=== PATIENT | female | born 1955 | race African-American/Black ===

== ENCOUNTER 2016-11-22 09:36 | Inpatient (IN) ==
[2016-11-22 10:11] LABS: Basophils % 0.4 % (0.0-0.8); Eosinophils # 0.2 10*3/uL (0.0-0.87); Eosinophils % 3.5 % (0.00-10.9); Hematocrit 32.3 VOL% (35.7-47.0); Hemoglobin 10.8 GM/DL (12.0-16.0); Immature Granulocytes % 0.2 %; Immature Granulocytes Absolute 0.01 #; Lymphocytes # 1.5 10*3/uL (1.4-4.0); Lymphocytes % 26.1 % (21.3-54.2); Mean Corpuscular HGB Conc 33.4 GM/DL (32-36); Mean Corpuscular Hemoglobin 33 PG (27-34); Mean Corpuscular Volume 97.3 FL (87-102); Mean Platelet Volume 9.9 FL (9.6-12.0); Monocytes # 0.6 10*3/uL (0.11-0.8); Monocytes % 10.6 % (1.7-12.7); Neutrophils # 3.4 10*3/uL (1.4-7.4); Neutrophils % 59.2 % (38.7-73.9); Platelet Count 226 T/CUMM (130-400); Red Blood Count 3.32 MC/CUMM (3.8-5.5); White Blood Count 5.7 T/CUMM (4-12)
--- NOTE | 2016-11-22 10:14 | Emergency Department Note ---
Deng Ladd Brittany, am scribing for, and in the presence of, Sarath De MD 10:03. Kenisha Ladd James D, MD, personally performed the services described in this documentation, ascribed by Mariah Vilchis in my presence, and it is both accurate and complete . Arrival - Arrival Chief Complaint: Shortness of Breath ED Nursing Triage Note: pt had rt knee surgery in [place] and was dcd home friday. pt was not sent to rehab. pt is unable to walk on leg and has been laying in bed since friday getting home. pt c/o sob. pt has not been able to get to dialysis since friday and only stayed half the time then. Mode of Arrival: Stretcher Limitations: No Limitations Source: Patient, RN Notes Reviewed - History of Present Illness HPI Narrative: Patient is a 61 y/o black female presenting to the ED via EMS with c/o SOB which began this morning. Patient was recently DC'd to home on Friday, November 18 s/p having R knee Arthrascopy performed with which she was found to have torn meniscus and ACL in [place] per Dr. Sandoval. She was told that she would have rehab and tx for this due to her age. Patient reports that she was not sent to a rehabilitation center and is currently being set up for rehabilitation at [facility]. She has been unable to ambulate on this leg and has been lying in bed since arrival home. Patient is on Dialysis secondary to Renal Failure and has not had dialysis all week. Patient lives at home alone and has told ER nurse that she is here for rehabilitation purposes. Dr. Wallace is her provider. PMHx of HTN, Anxiety, Depression, Migraine, Seizures, Thyroid Disorder, Rehumatoid Arthritis, Renal Failure, GERD, Hemorrhoids, Breast CA. Onset (ago): hour(s) Consistency: constant Allergies/Adverse Reactions: Allergies Allergy/AdvReac Type Severity Reaction Status Date / Time aspirin Allergy RASH Verified 09/27/16 12:16 [From Excedrin Migraine] caffeine Allergy RASH Verified 09/27/16 12:16 [From Excedrin Migraine] clindamycin [From Cleocin] Allergy ITCHING Verified 09/27/16 12:16 haloperidol [From Haldol] Allergy RASH Verified 09/27/16 12:16 Iodinated Contrast Media - Allergy RASH Verified 09/27/16 12:16 Oral and [Iodinated Contrast Media - IV Dye] morphine Allergy HIVES Verified 09/27/16 12:16 NSAIDS (Non-Steroidal Allergy HIVES Verified 09/27/16 12:16 Anti-Inflamma Sulfa (Sulfonamide Allergy DIFFICULTY Verified 09/27/16 12:16 Antibiotics) SWALLOWING Home Medications: Home Medications Medication Instructions Recorded Confirmed Type ALPRAZolam [Alprazolam] 0.25 mg PO BEDTIME 09/10/14 09/27/16 History Sevelamer Carbonate Tab [Renvela 1,600 mg PO WITH SNACKS PRN 09/10/14 09/27/16 History Tab] Sevelamer Carbonate Tab [Renvela 3,200 mg PO TID W/MEALS 09/10/14 09/27/16 History Tab] Topiramate [Topamax] 100 mg PO DAILY PRN 09/10/14 09/27/16 History Zolpidem Tartrate 10 mg PO BEDTIME PRN 09/10/14 09/27/16 History HYDROcodone/ACETAMIN 10-325 [[place] 1 tablet PO Q6H 10/17/15 09/27/16 History 10-325] Levothyroxine Tab [Synthroid Tab] 175 mcg PO QAM 10/17/15 09/27/16 History Cinacalcet [Sensipar] 30 mg PO DAILY W/LUNCH 03/13/16 09/27/16 History Esomeprazole Magnesium [Nexium] 40 mg PO QAM 03/13/16 09/27/16 History Mupirocin 2% Oint [Bactroban 2% 1 applic TOP TID #22 gm 09/27/16 Rx Oint] Review of System - Review of System 12 point system: reviewed and no additional remarkable complaints except as stated - Review of System Constitutional: Absent: chills, fever Eyes: Absent: vision change Respiratory: Present: respiratory distress Cardiovascular: Absent: chest pain Gastrointestinal: Absent: nausea, vomiting Medical,Surgical,& Family Hx - Medical History Cardio: History of: Hypertension Psychological: History of: Anxiety Disorders, Depression Neurology: History of: Migraine, Seizures (last occurence at age 10) Endocrine: History of: Thyroid Disorder Rheumatology: History of;: Rheumatoid Arthritis Renal: History of: Dialysis (M W F), Renal Failure Gastrointestinal: History of: GERD, Hemorrhoids Musculoskeletal: History of: Back/Neck Problems Reproductive: History of: Breast Cancer - Surgical History HEENT Surgeries: Surgical HX of: Thyroid Surgery Abdominal Surgeries: Surgical HX of: Cholecystectomy, Colonoscopy, EGD Reproductive Surgeries: Surgical HX of;: Breast Surgery (lumpectomy, tissue removal), Hysterectomy Orthopedic Surgeries: Surgical HX of;: Orthopedic Surgery (left knee arthroscopy ) - Family History Family History: Reports;: Family Cancer (mother (breast - 49)) Comment Only: Family Diabetes (mother), Family Hypertension (mother), Family Stroke (mother) - Social History Smoking Status: Never smoker Frequency of Alcohol Use: None Type of Drug Use: None Exam Physical Examination: GENERAL: This is a well-nourished, well-developed black female in no apparent distress. VITAL SIGNS: Reviewed. HEENT: Head is normocephalic and atraumatic. Pupils are equally round and reactive to light. Extraocular movement are intact. Oropharynx is benign with moist mucous membranes. NECK: Neck is soft and supple without tenderness. There are no masses. There is no lymphadenopathy. LUNGS: Lungs are clear to auscultation bilaterally. Chest rises symmetrically. There is no chest wall tenderness. CV: Heart is regular rate and rhythm without murmurs, rubs, or gallops. ABDOMEN: Abdomen is soft, non-tender to palpation. There are no abnormal masses palpated. There is no organomegaly. Bowel sounds are present and active. SKIN: Skin is warm and dry. No rash. EXTREMITIES: Patient is has swelling about the right knee. Wounds are healing well without any evidence of infection erythema or or induration. There is no purulent drainage. Patient does have 1-2+ pitting edema of the left lower extremity.. NEUROLOGIC: Awake, alert, and oriented x4. Cranial nerves II through XII are grossly intact. There are no motorsensory deficits. PSYCHIATRIC: Normal affect. Normal mood. Vital Signs: Vital Signs Temperature 97.5 F L 11/22/16 09:42 Pulse Rate 76 11/22/16 10:45 Respiratory Rate 16 11/22/16 10:45 Blood Pressure 131/86 11/22/16 10:45 O2 Sat by Pulse Oximetry 100 11/22/16 10:45 Results - Labs CBC & BMP: 11/22/16 10:03 11/22/16 10:03 Lab Results: I have reviewed the patients labs - Diagnostic Findings Procedure: Chest x-ray: image reviewed by me (No infiltrates, no pleural effusions.), X-ray: image reviewed by me (Right knee x-ray:) Disposition Clinical Impression: End-stage renal disease on hemodialysis, Right ACL tear, History of torn meniscus of right knee Case discussed with: patient Disposition: Still a Patient Condition: Stable
[2016-11-22 10:42] LABS: Calcium 7.7 MG/DL (8.5-10.1); Osmolality,Calculated 305.5 MOS/KG (273-304)
[2016-11-22 10:43] LABS: Potassium 5.7 MMOL/L (3.5-5.1)
--- NOTE | 2016-11-22 11:13 | XRay Report ---
XR chest 1V Indication: Dyspnea, end-stage renal disease Comparison: Chest x-ray March 13, 2016 Technique: Single frontal view of the chest. Findings: The cardiomediastinal silhouette is stable in configuration. Chronic change of the lungs without focal consolidation, pleural effusion, or pneumothorax. Visualized osseous and surrounding soft tissue structures appear grossly unchanged. IMPRESSION: Stable chest x-ray without acute cardiopulmonary process demonstrated. PROCEDURE INTERPRETED AT [facility] DEPARTMENT OF RADIOLOGY Final Report Signed by: Dr Fransico River
--- NOTE | 2016-11-22 11:13 | XRay Report ---
History: Right knee pain Date: 11/22/2016 Study: Right knee 2 views Comparison exam: September 27, 2016 There is no fracture, dislocation, or focal destructive osseous abnormality. There is osteopenia. There is mild to moderate osteophyte formation in all 3 joint compartments, more so medially. There is mild to moderate joint space narrowing in the medial knee compartment. There is a moderate-sized suprapatellar joint effusion. There is suspected osteopenia. Impression: Joint effusion. Osteoarthritis as before. Osteopenia PROCEDURE INTERPRETED AT [facility] DEPARTMENT OF RADIOLOGY Final Report Signed by: Dr. Marichuy Brand
[2016-11-22] MEDS ORDERED: ACETAMINOPHEN 325 MG TABLET PO PRN ×2 (11:26→12:15)
[2016-11-22] MEDS ORDERED: diphenhydrAMINE CAP 25 MG CAPSULE PO PRN (11:26)
[2016-11-22] MEDS ORDERED: ZALEPLON 5 MG CAPSULE PO PRN (11:26)
[2016-11-22] MEDS ORDERED: ONDANSETRON 4 MG/2 ML VIAL IV PRN (11:26)
[2016-11-22] MEDS ORDERED: GLUCAGON 1 MG VIAL IM PRN (11:26)
[2016-11-22] MEDS ORDERED: DEXTROSE 50% 25 GM/50 ML VIAL IV PRN (11:26)
[2016-11-22] MEDS ORDERED: guaiFENesin/DM ER 600-30 MG TABLET PO PRN (12:15)
[2016-11-22] MEDS ORDERED: MORPHINE 2 MG/1 ML SYRINGE IV PRN (12:15)
[2016-11-22] MEDS ORDERED: TOPIRAMATE 100 MG TABLET PO PRN (12:22)
[2016-11-22] MEDS ORDERED: SEVELAMER CARBONATE 800 MG TABLET PO PRN (12:22)
--- NOTE | 2016-11-22 12:29 | Hospitalist History & Physical ---
<Tashia Manning - Last Filed: 11/22/16 12:24> Assessment and Plan - Time spent with patient Time spent with patient: Greater than 30 minutes (1) Status post right knee scope Status: Acute Assessment and plan: 61-year-old -[place] female with history of end-stage renal disease on hemodialysis Friday, hypothyroidism, anxiety and depression, and migraines admitted by the hospitalist service status post right knee scope done in [place] on 11/18/16 with right knee pain, shortness of breath and chest pain. Patient has been immobile since surgery on Friday and has missed all but 2-1/2 hours of dialysis this week. Consult nephrology for dialysis today. Will get ultrasound of her right lower extremity to rule out DVT, consult physical therapy for evaluation and treatment. Patient will most likely need to go to swing bed or rehab following discharge. Since patient did complain of some chest pain and shortness of breath with radiation to the arm will go ahead and check stat troponins and EKG and trend these 3 to rule out HI. Her medicines have been reconciled. Dr. Olivas will see and examine patient and further recommendations to follow. Current Visit: Yes (2) Hypothyroidism Status: Acute Current Visit: Yes (3) History of migraine Status: Acute Current Visit: Yes (4) ESRD on hemodialysis Status: Acute Current Visit: No (5) Debility Status: Acute Current Visit: No (6) Anxiety and depression Status: Acute Current Visit: Yes History of Present Illness Chief complaint: Shortness of breath, chest pain, right knee pain History of present illness: Ms. Celestin is a 61 year old -[place] female with history of anxiety, depression, end-stage renal disease on hemodialysis, migraines, and hypothyroidism presenting to the ED with a several day history of increasing shortness of breath. Patient states she had a right knee scope on Friday by a doctor in [place]. This was done outpatient and she was sent home with a walker. Patient states her knee hurt and she did not get up out of the bed. She did have somebody come over on Friday and pick her up to take her to dialysis which she only did for about 2-1/2 hours. She is normally a Friday HD patient. Her last day of full dialysis was on Friday. Patient told me and not the ED doctor that she was complaining of left-sided chest pain that was radiating down to the arm that was associated with shortness of breath. Patient is very tearful in the room and does not understand why she is not feeling well. Upon exam patient's lungs are clear, CV regular rate and rhythm with no murmurs, abdomen obese and nontender, right knee with scope pulse with no signs of infection and Steri-Strips intact. She does have edema and tenderness to palpation. She has decreased range of motion. Her range passively is 0-25. Patient cannot actively bend the knee. She is afebrile and her vital signs are stable. Pertinent labs are H&H of 10.8/ 32.3, potassium mildly elevated at 5.7, creatinine 15.4, BNP mildly elevated at 308. Patient's EKG and troponins are pending. Chest x-ray is stable with no acute process and right knee x-ray shows suprapatellar joint effusion and osteoarthritis with osteopenia. After discussion with Dr. De the ED physician and Dr. Olivas the admitting hospitalist, it was agreed patient will be admitted for further evaluation treatment. Patient's medicines have been reconciled in the system and she is a full code. Home Medications Medication Instructions Recorded Confirmed Type ALPRAZolam [Alprazolam] 0.25 mg PO BEDTIME 09/10/14 11/22/16 History Sevelamer Carbonate Tab [Renvela 1,600 mg PO WITH SNACKS PRN 09/10/14 11/22/16 History Tab] Sevelamer Carbonate Tab [Renvela 3,200 mg PO TID W/MEALS 09/10/14 11/22/16 History Tab] Topiramate [Topamax] 100 mg PO DAILY PRN 09/10/14 11/22/16 History Zolpidem Tartrate 10 mg PO BEDTIME PRN 09/10/14 11/22/16 History HYDROcodone/ACETAMIN 10-325 [[place] 1 tablet PO Q6H 10/17/15 11/22/16 History 10-325] Levothyroxine Tab [Synthroid Tab] 175 mcg PO QAM 10/17/15 11/22/16 History Cinacalcet [Sensipar] 30 mg PO DAILY W/LUNCH 03/13/16 11/22/16 History Esomeprazole Magnesium [Nexium] 40 mg PO QAM 03/13/16 11/22/16 History Allergies Allergy/AdvReac Type Severity Reaction Status Date / Time aspirin Allergy RASH Verified 09/27/16 12:16 [From Excedrin Migraine] caffeine Allergy RASH Verified 09/27/16 12:16 [From Excedrin Migraine] clindamycin [From Cleocin] Allergy ITCHING Verified 09/27/16 12:16 haloperidol [From Haldol] Allergy RASH Verified 09/27/16 12:16 Iodinated Contrast Media - Allergy RASH Verified 09/27/16 12:16 Oral and [Iodinated Contrast Media - IV Dye] morphine Allergy HIVES Verified 09/27/16 12:16 NSAIDS (Non-Steroidal Allergy HIVES Verified 09/27/16 12:16 Anti-Inflamma Sulfa (Sulfonamide Allergy DIFFICULTY Verified 09/27/16 12:16 Antibiotics) SWALLOWING Medical,Surgical,& Family Hx - Medical History Cardio: History of: Hypertension Psychological: History of: Anxiety Disorders, Depression Neurology: History of: Migraine, Seizures (last occurence at age 10) Endocrine: History of: Thyroid Disorder Rheumatology: History of;: Rheumatoid Arthritis Renal: History of: Dialysis (M W F), Renal Failure Gastrointestinal: History of: GERD, Hemorrhoids Musculoskeletal: History of: Back/Neck Problems Reproductive: History of: Breast Cancer - Surgical History HEENT Surgeries: Surgical HX of: Thyroid Surgery Abdominal Surgeries: Surgical HX of: Cholecystectomy, Colonoscopy, EGD Reproductive Surgeries: Surgical HX of;: Breast Surgery (lumpectomy, tissue removal), Hysterectomy Orthopedic Surgeries: Surgical HX of;: Orthopedic Surgery (left knee arthroscopy ) - Family History Family History: Reports;: Family Cancer (mother (breast - 49)) Comment Only: Family Diabetes (mother), Family Hypertension (mother), Family Stroke (mother) - Social History Smoking Status: Never smoker Frequency of Alcohol Use: None Type of Drug Use: None Marital Status: Single Lives With:: Alone Functional capacity: independent ambulation (Was independent ambulator prior to the scope on 11/18/2016) 12 point system: reviewed and no additional remarkable complaints except as stated Exam - Constitutional Vitals: Period Temp Pulse Resp BP Sys/[place] Pulse Ox Last 24 Hr 97.5 F-97.5 F 65-83 16-18 115-148/62-86 99-100 Exam: Constitutional System: Mild distress and tearful. No tremulousness. Head: Normocephalic, atraumatic. Ears, Nose and Throat System: No evidence of Otitis or Mastoiditis. No epistaxis or discharge Eyes System: Pupils equal, round, and reactive. Extraocular muscles intact. Neck: Supple, without adenopathy, No jugular venous distention. No thyromegaly, neck mass, or prior surgery apparent. Respiratory System: Chest clear to auscultation. Cardiovascular System: Heart with regular rate and rhythm. No murmur. GI System: Abdomen soft, nontender. Normo active bowel sounds present. Musculoskeletal System: limbs with no pedal edema. Diminished distal pulses. Patient does have some right knee edema with no signs of infection from the scope, Steri-Strips intact, passive range of motion with pain from 0-25. No active range of motion, strength 2+/5 Neurological System: No discernable sensory deficit. No aphasia Psychiatric System: Conversation is rational Results - Labs CBC & BMP: 11/22/16 10:03 11/22/16 10:03 Lab Results: I have reviewed the past 24 hour labs - Diagnostic Findings Procedure: Chest x-ray: report reviewed by me (No acute process), X-ray: report reviewed by me (Right knee x-ray shows moderate sized suprapatellar joint effusion, osteoarthritis, osteopenia) <Jam Olivas - Last Filed: 11/22/16 17:02> History of Present Illness History of present illness: Ms. Celestin is a 61 year old female who is being admitted to the hospital with complaints of right knee pain status post right knee arthroscopy 4 days prior to admission and shortness of breath. She is previously known history of end- stage renal disease on hemodialysis and has missed her regularly scheduled hemodialysis sessions this week. I have interviewed and examined the patient and reviewed all available laboratory and radiographic test results. I agree with the assessment and plans as per nurse practitioner Lyubov Guardado. Ms. Celestin will be admitted to the hospital. Nephrology and physical therapy have been consulted. Exam - Constitutional Vitals: Period Temp Pulse Resp BP Sys/[place] Pulse Ox Last 24 Hr 97.5 F-97.5 F 59-83 16-18 115-148/59-86 99-100 Results - Labs CBC & BMP: 11/22/16 10:03 11/22/16 10:03
[2016-11-22 12:57] LABS: Risk Ratio 2.17; VLDL CHOLESTEROL 17.8 MG/DL
--- NOTE | 2016-11-22 13:15 | Ultrasound Report ---
US venous doppler LE BI Indication: Edema. Comparison: No relevant comparison.. Technique: Grayscale, spectral, and color Doppler interrogation of the bilateral lower extremity veins was performed. Augmentation and compression was performed. Findings: Grayscale, color Doppler, and pulsed Doppler evaluation of the veins of the bilateral lower extremity demonstrates no evidence of deep venous thrombosis. IMPRESSION: No evidence of deep venous thrombosis in either lower extremity. PROCEDURE INTERPRETED AT [facility] DEPARTMENT OF RADIOLOGY Final Report Signed by: Dr Fransico River
--- NOTE | 2016-11-22 14:00 | Order Completion Report ---
See report scanned to EMR
[2016-11-22 15:14] LABS: Troponin I Only 0.015 NG/ML (0.00-0.045)
--- NOTE | 2016-11-22 16:39 | Nephrology Consult Note ---
History of Present Illness Chief complaint: ESRD History of present illness: Ms. Celestin is a 61 year old female with ESRD secondary to hypertension. She underwent arthroscopy of her knee on 11/18/16. She has missed dialysis since then due to difficulty ambulating. She had mild shortness of breath and left shoulder pain this morning. She is seen during dialysis. Shortness of breath has resolved. Home Medications Medication Instructions Recorded Confirmed Type ALPRAZolam [Alprazolam] 0.25 mg PO BEDTIME 09/10/14 11/22/16 History Sevelamer Carbonate Tab [Renvela 1,600 mg PO WITH SNACKS PRN 09/10/14 11/22/16 History Tab] Sevelamer Carbonate Tab [Renvela 3,200 mg PO TID W/MEALS 09/10/14 11/22/16 History Tab] Topiramate [Topamax] 100 mg PO DAILY PRN 09/10/14 11/22/16 History Zolpidem Tartrate 10 mg PO BEDTIME PRN 09/10/14 11/22/16 History HYDROcodone/ACETAMIN 10-325 [[place] 1 tablet PO Q6H 10/17/15 11/22/16 History 10-325] Levothyroxine Tab [Synthroid Tab] 175 mcg PO QAM 10/17/15 11/22/16 History Cinacalcet [Sensipar] 30 mg PO DAILY W/LUNCH 03/13/16 11/22/16 History Esomeprazole Magnesium [Nexium] 40 mg PO QAM 03/13/16 11/22/16 History Allergies Allergy/AdvReac Type Severity Reaction Status Date / Time aspirin Allergy RASH Verified 09/27/16 12:16 [From Excedrin Migraine] caffeine Allergy RASH Verified 09/27/16 12:16 [From Excedrin Migraine] clindamycin [From Cleocin] Allergy ITCHING Verified 09/27/16 12:16 haloperidol [From Haldol] Allergy RASH Verified 09/27/16 12:16 Iodinated Contrast Media - Allergy RASH Verified 09/27/16 12:16 Oral and [Iodinated Contrast Media - IV Dye] morphine Allergy HIVES Verified 09/27/16 12:16 NSAIDS (Non-Steroidal Allergy HIVES Verified 09/27/16 12:16 Anti-Inflamma Sulfa (Sulfonamide Allergy DIFFICULTY Verified 08/11/17 12:16 Antibiotics) SWALLOWING Medical,Surgical,& Family Hx - Medical History Cardio: History of: Hypertension Psychological: History of: Anxiety Disorders, Depression Neurology: History of: Migraine, Seizures (last occurence at age 10) Endocrine: History of: Thyroid Disorder Rheumatology: History of;: Rheumatoid Arthritis Renal: History of: Dialysis (M W F), Renal Failure Gastrointestinal: History of: GERD, Hemorrhoids Musculoskeletal: History of: Back/Neck Problems Reproductive: History of: Breast Cancer - Surgical History HEENT Surgeries: Surgical HX of: Thyroid Surgery Abdominal Surgeries: Surgical HX of: Cholecystectomy, Colonoscopy, EGD Reproductive Surgeries: Surgical HX of;: Breast Surgery (lumpectomy, tissue removal), Hysterectomy Orthopedic Surgeries: Surgical HX of;: Orthopedic Surgery (left knee arthroscopy ) - Family History Family History: Reports;: Family Cancer (mother (breast - 49)) Comment Only: Family Diabetes (mother), Family Hypertension (mother), Family Stroke (mother) - Social History Smoking Status: Never smoker Frequency of Alcohol Use: None Type of Drug Use: None Review of Systems 12 point system: reviewed and no additional remarkable complaints except as stated Exam - Vital Signs Vital signs: Period Temp Pulse Resp BP Sys/[place] Pulse Ox Last 24 Hr 97.5 F-97.5 F 59-83 16-18 115-148/59-86 99-100 Exam: Gen.: Alert and oriented x3. ENT: Pupils equal round reactive to light. EOMs intact. Mucous membranes moist. Neck: Supple. No JVD or bruit. Cardiovascular: Regular rate and rhythm. No murmur rub or gallop Lungs: Clear Abdomen: Soft. Nontender. Positive bowel sounds. No organomegaly Extremities: 1+ edema Results - Labs CBC & BMP: 11/22/16 10:03 11/22/16 10:03 Assessment and Plan (1) End-stage renal disease on hemodialysis Status: Acute Assessment and plan: 61-year-old woman with: * ESRD. Seen during dialysis. Blood pressure stable. * Hypertension. Controlled * Torn meniscus, right knee. Status post arthroscopic repair Current Visit: Yes (2) Anxiety and depression Status: Acute Current Visit: Yes (3) History of torn meniscus of right knee Status: Acute Current Visit: Yes (4) Hypothyroidism Status: Acute Current Visit: Yes (5) Hypertension Status: Acute Current Visit: No
[2016-11-22] MEDS: MEPERIDINE 25 MG/1 ML VIAL IV PRN (17:52)
[2016-11-22] MEDS: ENOXAPARIN 30 MG/0.3 ML SYRINGE SUBCUT SCH (17:53)
[2016-11-22] MEDS: SEVELAMER CARBONATE 800 MG TABLET PO SCH (17:53)
[2016-11-22] MEDS: CINACALCET 30 MG TABLET PO SCH (17:54)
[2016-11-22 18:08] LABS: Troponin I Only 0.015 NG/ML (0.00-0.045)
[2016-11-22 20:05] LABS: Troponin I Only 0.021 NG/ML (0.00-0.045)
[2016-11-22] MEDS: ALPRAZolam 0.25 MG TABLET PO SCH (20:55)
[2016-11-22] MEDS: DOCUSATE SODIUM 100 MG CAPSULE PO SCH (20:55)
[2016-11-22 23:14] LABS: Troponin I Only < 0.015 NG/ML (0.00-0.045)
[2016-11-23 04:26] LABS: Basophils % 0.8 % (0.0-0.8); Eosinophils # 0.2 10*3/uL (0.0-0.87); Eosinophils % 4.6 % (0.00-10.9); Hematocrit 33.1 VOL% (35.7-47.0); Hemoglobin 10.7 GM/DL (12.0-16.0); Immature Granulocytes % 0.3 %; Immature Granulocytes Absolute 0.01 #; Lymphocytes # 1.3 10*3/uL (1.4-4.0); Lymphocytes % 34.2 % (21.3-54.2); Mean Corpuscular HGB Conc 32.3 GM/DL (32-36); Mean Corpuscular Hemoglobin 32 PG (27-34); Mean Corpuscular Volume 98.5 FL (87-102); Mean Platelet Volume 9.9 FL (9.6-12.0); Monocytes # 0.5 10*3/uL (0.11-0.8); Monocytes % 12.7 % (1.7-12.7); Neutrophils # 1.8 10*3/uL (1.4-7.4); Neutrophils % 47.4 % (38.7-73.9); Platelet Count 207 T/CUMM (130-400); Red Blood Count 3.36 MC/CUMM (3.8-5.5); White Blood Count 3.7 T/CUMM (4-12)
[2016-11-23 04:59] LABS: Calcium 8.2 MG/DL (8.5-10.1); Osmolality,Calculated 285.7 MOS/KG (273-304); Potassium 5.3 MMOL/L (3.5-5.1)
[2016-11-23] MEDS: LEVOTHYROXINE 175 MCG TABLET PO SCH (06:46)
[2016-11-23] MEDS: MEPERIDINE 25 MG/1 ML VIAL IV PRN (08:50)
[2016-11-23] MEDS: DOCUSATE SODIUM 100 MG CAPSULE PO SCH ×2 (08:51→20:26)
[2016-11-23] MEDS: PANTOPRAZOLE 40 MG TABLET PO SCH (08:51)
[2016-11-23] MEDS: SEVELAMER CARBONATE 800 MG TABLET PO SCH ×3 (08:51→16:47)
--- NOTE | 2016-11-23 08:58 | Hospitalist Progress Note ---
Assessment and Plan (1) Obesity Status: Acute Current Visit: Yes Qualifiers: Obesity type: unspecified obesity type Obesity classification: adult class 3 (BMI >= 40) (2) ESRD on hemodialysis Status: Acute Assessment and plan: She continues her regularly scheduled hemodialysis under the management of nephrology. Current Visit: No (3) Hypertension Status: Acute Assessment and plan: Her blood pressure today is 105/52. Current Visit: No (4) Status post right knee scope Status: Acute Assessment and plan: She has begun physical therapy. Her recovery is being made more difficult by her obesity. I have consulted case management to see if she is a candidate for rehabilitation placement. Current Visit: Yes Hospitalist: Subjective Interval history: She was seen yesterday in consultation by Dr. Mcgrath of nephrology. She underwent hemodialysis yesterday. She has started physical therapy. I have consulted case management to see if she is a candidate for rehabilitation placement. Exam - Constitutional Vitals: Period Temp Pulse Resp BP Sys/[place] Pulse Ox Last 24 Hr 97.5 F-98.7 F 59-83 16-20 99-148/47-86 95-100 General appearance: no acute distress, morbidly obese - Head Head exam: Present: normal inspection - Neck Neck exam: Present: normal inspection - Respiratory Respiratory exam: Present: clear to auscultation bilaterally - Cardiovascular Cardiovascular exam: Present: regular rate and rhythm - GI/Abdominal GI/Abdominal exam: Present: normal bowel sounds, soft, other (Nontender with no palpable masses or hepatosplenomegaly.) - Extremities Exam Extremities exam: Present: other (Her right knee, with the knee which underwent arthroscopy, appears normal with no evidence of infection.) - Skin Skin exam: Present: normal color, warm, intact Results - Labs CBC & BMP: 11/23/16 02:54 11/23/16 02:54
--- NOTE | 2016-11-23 09:38 | Order Completion Report ---
See report scanned to EMR
--- NOTE | 2016-11-23 12:04 | Nephrology Progress Note ---
Nephrology - PN: Subj Interval history: No shortness of breath or chest pain today Exam (PN)-Nephrology - Vital Signs Vital signs: Period Temp Pulse Resp BP Sys/Escobedo Pulse Ox Last 24 Hr 97.5 F-98.7 F 59-70 16-20 99-129/47-71 95-100 Exam: ENT: Normal Cardiovascular: Regular rate and rhythm. No murmur rub or gallop Lungs: Clear Extremities: 1+ edema - Lab 11/23/16 02:54 11/23/16 02:54 Most recent lab results Calcium 8.2 MG/DL (8.5-10.1) L 11/23/16 02:54 Magnesium 2.5 MG/DL (1.8-2.4) H 11/23/16 02:54 Assessment and Plan (1) End-stage renal disease on hemodialysis Status: Acute Assessment and plan: 61-year-old woman with: * ESRD. Dialysis Friday * Hypertension. Controlled * Torn meniscus, right knee. Status post arthroscopic repair Current Visit: Yes (2) Anxiety and depression Status: Acute Current Visit: Yes (3) History of torn meniscus of right knee Status: Acute Current Visit: Yes (4) Hypothyroidism Status: Acute Current Visit: Yes (5) Hypertension Status: Acute Current Visit: No
[2016-11-23] MEDS: CINACALCET 30 MG TABLET PO SCH (13:06)
[2016-11-23] MEDS: ENOXAPARIN 30 MG/0.3 ML SYRINGE SUBCUT SCH (13:06)
--- NOTE | 2016-11-23 15:09 | Order Completion Report ---
See report scanned to EMR
[2016-11-23] MEDS: ALPRAZolam 0.25 MG TABLET PO SCH (20:27)
[2016-11-23] MEDS: ZALEPLON 5 MG CAPSULE PO PRN (20:42)
[2016-11-24] MEDS: MEPERIDINE 25 MG/1 ML VIAL IV PRN ×2 (00:24→20:54)
[2016-11-24] MEDS: LEVOTHYROXINE 175 MCG TABLET PO SCH (06:31)
[2016-11-24] MEDS: DOCUSATE SODIUM 100 MG CAPSULE PO SCH ×2 (08:07→20:54)
[2016-11-24] MEDS: SEVELAMER CARBONATE 800 MG TABLET PO SCH ×3 (08:07→17:12)
[2016-11-24] MEDS: PANTOPRAZOLE 40 MG TABLET PO SCH (08:09)
--- NOTE | 2016-11-24 08:37 | XRay Report ---
Portable chest Indication: Shortness of breath, cough Comparison: November 22, 2016 Findings: Cardiomediastinal contours are stable. Lungs are clear bilaterally. No acute osseous abnormalities. Visualized upper abdomen demonstrates no acute pathology. Impression: No acute cardiopulmonary findings PROCEDURE INTERPRETED AT [facility] DEPARTMENT OF RADIOLOGY Final Report Signed by: Britt Hair MD
--- NOTE | 2016-11-24 09:40 | Hospitalist Progress Note ---
Assessment and Plan (1) Obesity Status: Acute Current Visit: Yes Qualifiers: Obesity type: unspecified obesity type Obesity classification: adult class 3 (BMI >= 40) (2) ESRD on hemodialysis Status: Acute Assessment and plan: She continues her regularly scheduled hemodialysis under the management of nephrology. Current Visit: No (3) Hypertension Status: Acute Assessment and plan: Her blood pressure today is 105/63. Current Visit: No (4) Status post right knee scope Status: Acute Assessment and plan: She has begun physical therapy. Her recovery is being made more difficult by her obesity. She is to go to rehabilitation tomorrow. Current Visit: Yes Hospitalist: Subjective Interval history: She has begun physical therapy. She appears to be doing well with the physical therapy. She is to be transferred to rehabilitation tomorrow. Exam - Constitutional Vitals: Period Temp Pulse Resp BP Sys/Escobedo Pulse Ox Last 24 Hr 97.0 F-97.9 F 62-79 18-18 83-117/50-68 94-98 General appearance: no acute distress, morbidly obese - Head Head exam: Present: normal inspection - Neck Neck exam: Present: normal inspection - Respiratory Respiratory exam: Present: clear to auscultation bilaterally - Cardiovascular Cardiovascular exam: Present: regular rate and rhythm - GI/Abdominal GI/Abdominal exam: Present: normal bowel sounds, soft, other (Nontender with no palpable masses or hepatosplenomegaly.) - Extremities Exam Extremities exam: Present: normal inspection - Skin Skin exam: Present: normal color, warm, intact Results - Labs CBC & BMP: 11/23/16 02:54 11/23/16 02:54
--- NOTE | 2016-11-24 11:50 | Nephrology Progress Note ---
Nephrology - PN: Subj Interval history: No new complaints today. No uremic symptoms Exam (PN)-Nephrology - Vital Signs Vital signs: Period Temp Pulse Resp BP Sys/Escobedo Pulse Ox Last 24 Hr 97.0 F-97.9 F 62-79 18-18 83-117/50-68 94-98 Exam: ENT: Normal Cardiovascular: Regular rate and rhythm. No murmur rub or gallop Lungs: Clear Extremities: 1+ edema - Lab 11/23/16 02:54 11/23/16 02:54 Most recent lab results Calcium 8.2 MG/DL (8.5-10.1) L 11/23/16 02:54 Magnesium 2.5 MG/DL (1.8-2.4) H 11/23/16 02:54 Assessment and Plan (1) End-stage renal disease on hemodialysis Status: Acute Assessment and plan: 61-year-old woman with: * ESRD. Dialysis Friday * Hypertension. Controlled * Torn meniscus, right knee. Status post arthroscopic repair Current Visit: Yes (2) Anxiety and depression Status: Acute Current Visit: Yes (3) History of torn meniscus of right knee Status: Acute Current Visit: Yes (4) Hypothyroidism Status: Acute Current Visit: Yes (5) Hypertension Status: Acute Current Visit: No
[2016-11-24] MEDS: CINACALCET 30 MG TABLET PO SCH (11:54)
[2016-11-24] MEDS: ENOXAPARIN 30 MG/0.3 ML SYRINGE SUBCUT SCH (11:54)
[2016-11-24] MEDS: ZALEPLON 5 MG CAPSULE PO PRN (20:54)
[2016-11-24] MEDS: ALPRAZolam 0.25 MG TABLET PO SCH (20:54)
[2016-11-25] MEDS: MEPERIDINE 25 MG/1 ML VIAL IV PRN (03:58)
[2016-11-25] MEDS: LEVOTHYROXINE 175 MCG TABLET PO SCH (06:13)
[2016-11-25 07:37] VITALS: BP 114/61
[2016-11-25] MEDS: SEVELAMER CARBONATE 800 MG TABLET PO SCH ×3 (08:24→13:22)
[2016-11-25] MEDS: PANTOPRAZOLE 40 MG TABLET PO SCH (08:25)
[2016-11-25] MEDS: DOCUSATE SODIUM 100 MG CAPSULE PO SCH (08:25)
--- NOTE | 2016-11-25 08:29 | Discharge Summary ---
Hospital Course - Hospital Course Hospital Course: Ms. Celestin is a 61 year old -[place] female with history of anxiety, depression, end-stage renal disease on hemodialysis, migraines, and hypothyroidism presenting to the ED with a several day history of increasing shortness of breath. Patient states she had a right knee scope on Friday by a doctor in [place]. This was done outpatient and she was sent home with a walker. Patient states her knee hurt and she did not get up out of the bed. She did have somebody come over on Friday and pick her up to take her to dialysis which she only did for about 2-1/2 hours. She is normally a Friday HD patient. Her last day of full dialysis was on Friday. Patient told me and not the ED doctor that she was complaining of left-sided chest pain that was radiating down to the arm that was associated with shortness of breath. Patient is very tearful in the room and does not understand why she is not feeling well. Upon exam patient's lungs are clear, CV regular rate and rhythm with no murmurs, abdomen obese and nontender, right knee with scope pulse with no signs of infection and Steri-Strips intact. She does have edema and tenderness to palpation. She has decreased range of motion. Her range passively is 0-25. Patient cannot actively bend the knee. She is afebrile and her vital signs are stable. Pertinent labs are H&H of 10.8/ 32.3, potassium mildly elevated at 5.7, creatinine 15.4, BNP mildly elevated at 308. Patient's EKG and troponins are pending. Chest x-ray is stable with no acute process and right knee x-ray shows suprapatellar joint effusion and osteoarthritis with osteopenia. Ms. Celestin was admitted to the hospital with the above problems. Her hemodialysis was continued under the management of nephrology. She was seen in consultation by physical therapy who recommended, after initial evaluation, that after discharge she go to a rehabilitation facility for further physical therapy. At the time of her discharge she was comfortable and stable. Diagnosis - Discharge Diagnosis (1) Obesity Status: Chronic (2) ESRD on hemodialysis Status: Chronic (3) Hypertension Status: Chronic (4) Status post right knee scope Status: Acute Discharge Plan - Discharge Data Disposition: Disch/Xfer-Ip Rehab Fac Condition at Discharge: Stable Discharge Diet: other (Renal diet) Activity: as per physical therapy - Discharge Medications Continue Zolpidem Tartrate 10 mg PO BEDTIME PRN PRN Reason: Sleep Topiramate [Topamax] 100 mg PO DAILY PRN PRN Reason: Headache ALPRAZolam [Alprazolam] 0.25 mg PO BEDTIME Sevelamer Carbonate Tab [Renvela Tab] 1,600 mg PO WITH SNACKS PRN PRN Reason: prevents hypocalcemia Sevelamer Carbonate Tab [Renvela Tab] 3,200 mg PO TID W/MEALS HYDROcodone/ACETAMIN 10-325 [[place] 10-325] 1 tablet PO Q6H Levothyroxine Tab [Synthroid Tab] 175 mcg PO QAM Esomeprazole Magnesium [Nexium] 40 mg PO QAM Cinacalcet [Sensipar] 30 mg PO DAILY W/LUNCH - Follow Up or Referral - Forms/Instructions Exam - Constitutional Vitals: Period Temp Pulse Resp BP Sys/Escobedo Pulse Ox Last 24 Hr 97.3 F-98.1 F 63-71 18-19 100-114/57-63 92-99 DS: Provider Date of admission: 11/22/16 11:24 Primary care physician: . No PCP Attending physician on admission: Jam Olivas Consults: 11/22/16 11:25 Consult to Physician [CONS] Routine Comment: pt of dr galarza, [facility] Consulting Provider: Willam Mcgrath When should Consulting Provider be notified: Now Person Notified: Date Notified: 11/22/16 Time Notified: 15:56 11/22/16 11:27 Consult to Case Mgmt/Social Srvs [CONS] Routine Reason for Case Mgmt/Social Srvs: Discharge Planning Rehab Swingbed/SNF/Half-Way 11/22/16 12:15 Consult to Physical Therapy [CONS] Routine Reason for Physical Therapy: Evaluate and Treat Consult Comment: rehab vs sb 11/23/16 08:43 Consult to Case Mgmt/Social Srvs [CONS] Routine Reason for Case Mgmt/Social Srvs: Rehab Discharging clinician: Jam Olivas
--- NOTE | 2016-11-25 08:37 | Physician Query Form ---
CLICK EDIT DOCUMENT TO SELECT QUERY ANSWER --> OK --> SIGN Talisha Phoenix RN, CCDS [employer]ified [employer] W) [phone] (f) [phone] [email or web address]: Make your selection(s) from the choices in EACH section by typing an "x" and enter comments in the comment section. Please use your independent medical judgment in providing your response. This request does not imply that any particular answer is desired or expected. CLINICAL INDICATORS: (Providers should not edit this section) "She underwent arthroscopy of her knee on 11/18/16. She has missed dialysis since then due to difficulty ambulating. She had mild shortness of breath and left shoulder pain this morning. She is seen during dialysis. Shortness of breath has resolved." Based on the above, could you clarify the appropriate diagnosis, if significant , that supports the above abnormalities and additional evaluation, monitoring, and/or treatment rendered: (x ) SOB due to Volume Overload ( ) SOB due to ( ) Other, please specify: ( ) Clinically unable to determine COMMENTS: PLEASE ALSO DOCUMENT RESPONSE IN PROGRESS NOTES AND/OR DISCHARGE SUMMARY Use of terms such as suspected, likely, or probable (associated with a specific diagnosis that is being evaluated, monitored, or treated as if it exists) are acceptable and can be restated in the discharge summary if not ruled out. MTDD
--- NOTE | 2016-11-25 09:28 | Dialysis Note ---
Dialysis Note - Dialysis Note S: Ms Angelo is seen on dialysis. Weight 116kg predialysis. EDW by outpt records 109kg. O: VSS A: ESRD on CHD MWF. Tolerating routine CHD s complications at this time. Volume up approx 7kg. P: Challenge UF each treatment to EDW. Planned d/c to [facility] today. Will follow her there.
[2016-11-25] MEDS: ENOXAPARIN 30 MG/0.3 ML SYRINGE SUBCUT SCH (12:33)
[2016-11-25] MEDS: CINACALCET 30 MG TABLET PO SCH (12:33)
== END 2016-11-25 14:28 | DRG 640 ==
LOC: EDBD → EDUNIT# → N.ED 09:36 → N.EDINP 11:24 → N.5E 12:08

== ENCOUNTER 2017-05-07 05:38 | Observation (INO) ==
[2017-05-07] MEDS ORDERED: ONDANSETRON ODT 4 MG TABLET PO STA (06:11)
[2017-05-07] MEDS ORDERED: ONDANSETRON ODT 4 MG TABLET PO ONE ×2 (06:12→06:18)
[2017-05-07 07:04] LABS: Basophils % 0.4 % (0.0-0.8); Eosinophils # 0.1 10*3/uL (0.0-0.87); Eosinophils % 0.6 % (0.00-10.9); Hematocrit 37.8 VOL% (35.7-47.0); Hemoglobin 12.1 GM/DL (12.0-16.0); Immature Granulocytes % 0.2 %; Immature Granulocytes Absolute 0.02 #; Lymphocytes # 1.9 10*3/uL (1.4-4.0); Lymphocytes % 22.9 % (21.3-54.2); Mean Corpuscular Hemoglobin 30 PG (27-34); Mean Corpuscular Volume 92.6 FL (87-102); Mean Platelet Volume 9.8 FL (9.6-12.0); Monocytes # 0.9 10*3/uL (0.11-0.8); Monocytes % 10.6 % (1.7-12.7); Neutrophils # 5.4 10*3/uL (1.4-7.4); Neutrophils % 65.3 % (38.7-73.9); Platelet Count 283 T/CUMM (130-400); Red Blood Count 4.08 MC/CUMM (3.8-5.5); Red Cell Distribution Width 15.6 % (9.3-17.3); White Blood Count 8.3 T/CUMM (4-12)
[2017-05-07 07:16] LABS: PT Patient Result 10.1 SECS; Partial Thromboplastin Time 26.2 SECS (0-40)
[2017-05-07 07:26] LABS: Albumin 3.7 G/DL (3.4-5.0); Bilirubin,Total 0.4 MG/DL (0.2-1.0); Calcium 8.9 MG/DL (8.5-10.1); Osmolality,Calculated 298.5 MOS/KG (273-304); Potassium 4.6 MMOL/L (3.5-5.1); Total Protein 8.1 G/DL (6.4-8.3)
[2017-05-07] MEDS ORDERED: DEXTROSE 50% 25 GM/50 ML VIAL IV PRN (07:49)
[2017-05-07] MEDS ORDERED: ONDANSETRON 4 MG/2 ML VIAL IV PRN (07:49)
[2017-05-07] MEDS ORDERED: GLUCAGON 1 MG VIAL IM PRN (07:49)
[2017-05-07] MEDS ORDERED: ACETAMINOPHEN 325 MG TABLET PO PRN (07:49)
[2017-05-07 08:37] LABS: Risk Ratio 2.14; VLDL CHOLESTEROL 20.6 MG/DL
[2017-05-07] MEDS: PANTOPRAZOLE 40 MG TABLET PO SCH (10:03)
[2017-05-07] MEDS: SEVELAMER CARBONATE 800 MG TABLET PO SCH (16:35)
[2017-05-07] MEDS ORDERED: HEPARIN 10,000 UNIT/10 ML VIAL IV SCH (17:30)
[2017-05-08] MEDS ORDERED: ZALEPLON 5 MG CAPSULE PO PRN (00:08)
[2017-05-08 06:51] LABS: Basophils % 0.7 % (0.0-0.8); Eosinophils # 0.2 10*3/uL (0.0-0.87); Eosinophils % 3.6 % (0.00-10.9); Hematocrit 34.1 VOL% (35.7-47.0); Hemoglobin 11.1 GM/DL (12.0-16.0); Immature Granulocytes % 0.2 %; Immature Granulocytes Absolute 0.01 #; Lymphocytes # 2.5 10*3/uL (1.4-4.0); Lymphocytes % 43.7 % (21.3-54.2); Mean Corpuscular HGB Conc 32.6 GM/DL (32-36); Mean Corpuscular Hemoglobin 30 PG (27-34); Mean Corpuscular Volume 91.4 FL (87-102); Mean Platelet Volume 10.1 FL (9.6-12.0); Monocytes # 0.5 10*3/uL (0.11-0.8); Monocytes % 9.1 % (1.7-12.7); Neutrophils # 2.4 10*3/uL (1.4-7.4); Neutrophils % 42.7 % (38.7-73.9); Platelet Count 252 T/CUMM (130-400); Red Blood Count 3.73 MC/CUMM (3.8-5.5); Red Cell Distribution Width 15.9 % (9.3-17.3); White Blood Count 5.6 T/CUMM (4-12)
[2017-05-08 07:23] LABS: Calcium 8.4 MG/DL (8.5-10.1); Osmolality,Calculated 284.7 MOS/KG (273-304)
[2017-05-08] MEDS: LEVOTHYROXINE 175 MCG TABLET PO SCH (07:40)
[2017-05-08] MEDS: SEVELAMER CARBONATE 800 MG TABLET PO SCH ×3 (09:09→16:13)
[2017-05-08] MEDS: PANTOPRAZOLE 40 MG TABLET PO SCH (09:09)
[2017-05-08] MEDS: CINACALCET 30 MG TABLET PO SCH (12:29)
[2017-05-08] MEDS: DOCUSATE SODIUM 100 MG CAPSULE PO PRN ×2 (16:13→20:41)
[2017-05-09] MEDS: LEVOTHYROXINE 175 MCG TABLET PO SCH (06:14)
[2017-05-09] MEDS: SEVELAMER CARBONATE 800 MG TABLET PO SCH ×3 (07:49→13:31)
[2017-05-09] MEDS: PANTOPRAZOLE 40 MG TABLET PO SCH ×3 (07:49→13:32)
[2017-05-09 08:45] VITALS: BP 154/86
[2017-05-09] MEDS: CINACALCET 30 MG TABLET PO SCH ×2 (11:25→13:31)
== END 2017-05-09 17:01 | disposition home or self-care (01) ==
LOC: EDUNIT# → EDBD → N.EDINP 05:38 → N.ED 05:38 → SUATTDRO 07:49 → N.EDINP 09:05 → N.5E 09:25
PROVIDERS: ADMIT Internal Medicine; ATTEND Internal Medicine Cardiovascular Disease

== ENCOUNTER 2021-07-11 09:51 | Inpatient (IN) ==
[2021-07-11 12:50] LABS: Basophils % 0.3 % (0.0-0.8); Eosinophils # 0.1 10*3/uL (0.0-0.87); Eosinophils % 1.2 % (0.00-10.9); Hematocrit 38.4 VOL% (35.7-47.0); Hemoglobin 12.4 GM/DL (12.0-16.0); Immature Granulocytes % 1.5 %; Immature Granulocytes Absolute 0.14 #; Lymphocytes # 0.9 10*3/uL (1.4-4.0); Lymphocytes % 9.5 % (21.3-54.2); Mean Corpuscular HGB Conc 32.3 GM/DL (32-36); Mean Corpuscular Volume 91.2 FL (87-102); Mean Platelet Volume 9.8 FL (9.6-12.0); Monocytes % 10.9 % (1.7-12.7); Neutrophils % 76.6 % (38.7-73.9); Platelet Count 437 T/CUMM (130-400); Red Blood Count 4.21 MC/CUMM (3.8-5.5); Red Cell Distribution Width 16.4 % (9.3-17.3); White Blood Count 9.5 T/CUMM (4-12)
[2021-07-11] MEDS ORDERED: cefTRIAXone 1,000 MG in SODIUM CHLORIDE 0.9% 100 ML IV STA (13:16)
[2021-07-11] MEDS ORDERED: AZITHROMYCIN 250 MG TABLET PO STA (13:16)
[2021-07-11 13:20] LABS: Albumin 2.4 G/DL (3.4-5.0); Bilirubin,Total 0.6 MG/DL (0.20-1.00); Osmolality,Calculated 283.8 MOS/KG (273-304); Potassium 4.6 MMOL/L (3.5-5.1); Total Protein 8.5 G/DL (6.4-8.2)
[2021-07-11 13:40] LABS: INR 1.1; PT Patient Result 11.8 SECS (10.5-12.0)
[2021-07-11] MEDS ORDERED: GLUCAGON 1 MG VIAL IM PRN (14:07)
[2021-07-11] MEDS ORDERED: ONDANSETRON 4 MG/2 ML VIAL IV PRN (14:07)
[2021-07-11] MEDS ORDERED: ZALEPLON 5 MG CAPSULE PO PRN (14:07)
[2021-07-11] MEDS ORDERED: ACETAMINOPHEN 325 MG TABLET PO PRN (14:07)
[2021-07-11] MEDS ORDERED: DEXTROSE 10% 250 ML BAG IV PRN (14:07)
[2021-07-11] MEDS ORDERED: ALPRAZolam 0.25 MG TABLET PO PRN (14:15)
[2021-07-11] MEDS ORDERED: SEVELAMER CARBONATE 800 MG TABLET PO SCH (14:30)
[2021-07-11] MEDS: SODIUM CHLORIDE 0.9% 1,000 ML IV SCH (14:35)
[2021-07-11] MEDS: HEPARIN 5,000 UNIT/1 ML VIAL SUBCUT SCH (15:43)
[2021-07-11] MEDS ORDERED: TACROLIMUS 0.5 MG CAPSULE PO SCH (17:00)
[2021-07-11] MEDS: TACROLIMUS 0.5 MG CAPSULE PO SCH (20:48)
[2021-07-11] MEDS: ASCORBIC ACID 500 MG TABLET PO SCH (20:48)
[2021-07-11] MEDS: METOPROLOL SUCCINATE XL 25 MG TABLET PO SCH (20:49)
[2021-07-11] MEDS ORDERED: CINACALCET 30 MG TABLET PO SCH (21:00)
[2021-07-11] MEDS ORDERED: MYCOPHENOLATE MOFETIL 250 MG CAPSULE PO SCH (21:00)
[2021-07-12 05:26] LABS: Basophils % 0.6 % (0.0-0.8); Eosinophils # 0.1 10*3/uL (0.0-0.87); Eosinophils % 1.7 % (0.00-10.9); Hematocrit 33.8 VOL% (35.7-47.0); Hemoglobin 10.8 GM/DL (12.0-16.0); Immature Granulocytes % 1.1 %; Immature Granulocytes Absolute 0.07 #; Lymphocytes # 0.7 10*3/uL (1.4-4.0); Lymphocytes % 10.7 % (21.3-54.2); Mean Corpuscular Volume 92.1 FL (87-102); Mean Platelet Volume 9.9 FL (9.6-12.0); Monocytes # 0.8 10*3/uL (0.11-0.8); Monocytes % 12.8 % (1.7-12.7); Neutrophils % 73.1 % (38.7-73.9); Platelet Count 381 T/CUMM (130-400); Red Blood Count 3.67 MC/CUMM (3.8-5.5); Red Cell Distribution Width 16.2 % (9.3-17.3); White Blood Count 6.4 T/CUMM (4-12)
[2021-07-12 05:47] LABS: Bilirubin,Total 0.5 MG/DL (0.20-1.00); Calcium 8.9 MG/DL (8.5-10.1); Osmolality,Calculated 285.5 MOS/KG (273-304); Potassium 3.9 MMOL/L (3.5-5.1); Risk Ratio 2.8; Thyroid Stimulating Hormone 0.192 uIU/ml (0.358-3.74); Total Protein 7.4 G/DL (6.4-8.2); VLDL Cholesterol 25.4 MG/DL
[2021-07-12] MEDS: HEPARIN 5,000 UNIT/1 ML VIAL SUBCUT SCH (05:49)
[2021-07-12] MEDS ORDERED: LEVOTHYROXINE 175 MCG TABLET PO SCH (06:30)
[2021-07-12] MEDS: SODIUM CHLORIDE 0.9% 1,000 ML IV SCH ×2 (08:27→17:27)
[2021-07-12] MEDS ORDERED: NON-FORMULARY MEDICATION (Esomeprazole Magnesium [Nexium] 40 MG capsule,delayed release(DR PO SCH (09:00)
[2021-07-12] MEDS ORDERED: DEXAMETHASONE INJ 6 MG in SODIUM CHLORIDE 0.9% 50 ML IV SCH (09:00)
[2021-07-12] MEDS: DEXAMETHASONE 10 MG/1 ML VIAL IV SCH (10:33)
[2021-07-12] MEDS: LEFLUNOMIDE 10 MG TABLET PO SCH (10:33)
[2021-07-12] MEDS: TACROLIMUS 0.5 MG CAPSULE PO SCH ×2 (10:33→21:50)
[2021-07-12] MEDS: ASCORBIC ACID 500 MG TABLET PO SCH ×2 (10:34→21:50)
[2021-07-12] MEDS: buPROPion XL 150 MG TABLET PO SCH (10:34)
[2021-07-12] MEDS: cefTRIAXone 1,000 MG in SODIUM CHLORIDE 0.9% 100 ML IV SCH (10:34)
[2021-07-12] MEDS: PANTOPRAZOLE 40 MG TABLET PO SCH (10:34)
[2021-07-12] MEDS: AZITHROMYCIN 250 MG TABLET PO SCH (10:34)
[2021-07-12] MEDS: CHOLECALCIFEROL 1,000 UNIT TABLET PO SCH (10:34)
[2021-07-12] MEDS: ZINC GLUCONATE 50 MG TABLET PO SCH (10:34)
[2021-07-12] MEDS: ENOXAPARIN 120 MG/0.8 ML SYRINGE SUBCUT SCH ×2 (12:31→22:11)
[2021-07-12] MEDS ORDERED: NON-FORMULARY MEDICATION (Cholecalciferol (Vitamin D3) 1,250 mcg (50,000 unit) Capsule) PO SCH (13:00)
[2021-07-12] MEDS: WARFARIN 5 MG TABLET PO SCH (17:27)
[2021-07-12] MEDS: METOPROLOL SUCCINATE XL 25 MG TABLET PO SCH (22:10)
[2021-07-13] MEDS: LEVOTHYROXINE 150 MCG TABLET PO SCH (05:45)
[2021-07-13 05:47] LABS: Basophils % 0.2 % (0.0-0.8); Hematocrit 30.8 VOL% (35.7-47.0); Hemoglobin 9.9 GM/DL (12.0-16.0); Lymphocytes # 0.7 10*3/uL (1.4-4.0); Lymphocytes % 6.7 % (21.3-54.2); Mean Corpuscular HGB Conc 32.1 GM/DL (32-36); Mean Corpuscular Volume 90.9 FL (87-102); Mean Platelet Volume 10.2 FL (9.6-12.0); Monocytes # 0.7 10*3/uL (0.11-0.8); Monocytes % 7.6 % (1.7-12.7); Neutrophils % 84.5 % (38.7-73.9); Platelet Count 379 T/CUMM (130-400); Red Blood Count 3.39 MC/CUMM (3.8-5.5); Red Cell Distribution Width 16.3 % (9.3-17.3); White Blood Count 9.7 T/CUMM (4-12)
[2021-07-13 05:52] LABS: INR 1.1; PT Patient Result 12.1 SECS (10.5-12.0)
[2021-07-13 05:59] LABS: Calcium 8.6 MG/DL (8.5-10.1); Osmolality,Calculated 284.4 MOS/KG (273-304); Potassium 4.3 MMOL/L (3.5-5.1)
[2021-07-13] MEDS ORDERED: WARFARIN 5 MG TABLET PO ONE (08:30)
[2021-07-13] MEDS: ZINC GLUCONATE 50 MG TABLET PO SCH (09:54)
[2021-07-13] MEDS: DEXAMETHASONE 10 MG/1 ML VIAL IV SCH (09:54)
[2021-07-13] MEDS: buPROPion XL 150 MG TABLET PO SCH (09:54)
[2021-07-13] MEDS: ASCORBIC ACID 500 MG TABLET PO SCH ×2 (09:54→20:29)
[2021-07-13] MEDS: PANTOPRAZOLE 40 MG TABLET PO SCH (09:54)
[2021-07-13] MEDS: LEFLUNOMIDE 10 MG TABLET PO SCH (09:54)
[2021-07-13] MEDS: TACROLIMUS 0.5 MG CAPSULE PO SCH ×2 (09:55→20:30)
[2021-07-13] MEDS: CHOLECALCIFEROL 1,000 UNIT TABLET PO SCH (09:55)
[2021-07-13] MEDS: AZITHROMYCIN 250 MG TABLET PO SCH (09:55)
[2021-07-13] MEDS: cefTRIAXone 1,000 MG in SODIUM CHLORIDE 0.9% 100 ML IV SCH (09:56)
[2021-07-13] MEDS: ENOXAPARIN 120 MG/0.8 ML SYRINGE SUBCUT SCH ×2 (10:09→20:31)
[2021-07-13] MEDS ORDERED: guaiFENesin/CODEINE 5 ML LIQUID PO ONE (10:15)
[2021-07-13] MEDS: BENZONATATE 100 MG CAPSULE PO SCH ×2 (15:21→20:30)
[2021-07-13] MEDS: WARFARIN 5 MG TABLET PO SCH (17:34)
[2021-07-13] MEDS: SODIUM CHLORIDE 0.9% 1,000 ML IV SCH (17:49)
[2021-07-13] MEDS: ZALEPLON 5 MG CAPSULE PO PRN (20:29)
[2021-07-14] MEDS: guaiFENesin/DM ER 600-30 MG TABLET PO PRN (02:46)
[2021-07-14] MEDS: LEVOTHYROXINE 150 MCG TABLET PO SCH (05:31)
[2021-07-14 07:17] LABS: Basophils % 0.2 % (0.0-0.8); Eosinophils % 0.1 % (0.00-10.9); Hematocrit 33.7 VOL% (35.7-47.0); Hemoglobin 10.9 GM/DL (12.0-16.0); Immature Granulocytes % 1.3 %; Immature Granulocytes Absolute 0.14 #; Lymphocytes # 0.8 10*3/uL (1.4-4.0); Mean Corpuscular HGB Conc 32.3 GM/DL (32-36); Mean Corpuscular Volume 90.6 FL (87-102); Mean Platelet Volume 10.1 FL (9.6-12.0); Monocytes # 0.7 10*3/uL (0.11-0.8); Monocytes % 6.6 % (1.7-12.7); Neutrophils % 84.8 % (38.7-73.9); Platelet Count 464 T/CUMM (130-400); Red Blood Count 3.72 MC/CUMM (3.8-5.5); Red Cell Distribution Width 16.6 % (9.3-17.3); White Blood Count 11.2 T/CUMM (4-12)
[2021-07-14 07:26] LABS: INR 1.3
[2021-07-14 07:34] LABS: Calcium 9.6 MG/DL (8.5-10.1); Potassium 4.8 MMOL/L (3.5-5.1)
[2021-07-14] MEDS: ENOXAPARIN 120 MG/0.8 ML SYRINGE SUBCUT SCH ×2 (09:37→21:09)
[2021-07-14] MEDS: PANTOPRAZOLE 40 MG TABLET PO SCH (09:37)
[2021-07-14] MEDS: BENZONATATE 100 MG CAPSULE PO SCH ×3 (09:37→21:10)
[2021-07-14] MEDS: LEFLUNOMIDE 10 MG TABLET PO SCH (09:38)
[2021-07-14] MEDS: ZINC GLUCONATE 50 MG TABLET PO SCH (09:39)
[2021-07-14] MEDS: TACROLIMUS 0.5 MG CAPSULE PO SCH ×2 (09:39→21:10)
[2021-07-14] MEDS: CHOLECALCIFEROL 1,000 UNIT TABLET PO SCH (09:39)
[2021-07-14] MEDS: buPROPion XL 150 MG TABLET PO SCH (09:39)
[2021-07-14] MEDS: AZITHROMYCIN 250 MG TABLET PO SCH (09:39)
[2021-07-14] MEDS: ASCORBIC ACID 500 MG TABLET PO SCH ×2 (09:39→21:10)
[2021-07-14] MEDS: cefTRIAXone 1,000 MG in SODIUM CHLORIDE 0.9% 100 ML IV SCH (09:42)
[2021-07-14] MEDS: DEXAMETHASONE 10 MG/1 ML VIAL IV SCH (09:42)
[2021-07-14] MEDS: SODIUM CHLORIDE 0.9% 1,000 ML IV SCH (11:07)
[2021-07-14] MEDS: WARFARIN 5 MG TABLET PO SCH (17:56)
[2021-07-14] MEDS: guaiFENesin 200 MG/10 ML UDCUP PO PRN (21:08)
[2021-07-14] MEDS: ZALEPLON 5 MG CAPSULE PO PRN (21:09)
[2021-07-14] MEDS: guaiFENesin/DM ER 600-30 MG TABLET PO SCH (21:12)
[2021-07-15] MEDS: guaiFENesin 200 MG/10 ML UDCUP PO PRN (02:09)
[2021-07-15 05:55] LABS: Basophils % 0.2 % (0.0-0.8); Hematocrit 33.4 VOL% (35.7-47.0); Hemoglobin 10.8 GM/DL (12.0-16.0); Immature Granulocytes Absolute 0.19 #; Lymphocytes # 0.7 10*3/uL (1.4-4.0); Lymphocytes % 6.8 % (21.3-54.2); Mean Corpuscular HGB Conc 32.3 GM/DL (32-36); Mean Corpuscular Volume 90.3 FL (87-102); Monocytes # 0.7 10*3/uL (0.11-0.8); Monocytes % 7.3 % (1.7-12.7); Neutrophils % 83.7 % (38.7-73.9); Platelet Count 412 T/CUMM (130-400); Red Cell Distribution Width 16.4 % (9.3-17.3); White Blood Count 9.7 T/CUMM (4-12)
[2021-07-15 06:04] LABS: INR 1.8; PT Patient Result 19.3 SECS (10.5-12.0)
[2021-07-15 06:11] LABS: Calcium 9.1 MG/DL (8.5-10.1); Osmolality,Calculated 280.5 MOS/KG (273-304); Potassium 4.4 MMOL/L (3.5-5.1)
[2021-07-15] MEDS: LEVOTHYROXINE 150 MCG TABLET PO SCH (06:11)
[2021-07-15] MEDS ORDERED: MAGNESIUM SULF RIDER 2 GM/50 ML PREMIX IV ONE (07:19)
[2021-07-15] MEDS: BENZONATATE 100 MG CAPSULE PO SCH ×3 (09:45→21:12)
[2021-07-15] MEDS: PANTOPRAZOLE 40 MG TABLET PO SCH (09:46)
[2021-07-15] MEDS: CHOLECALCIFEROL 1,000 UNIT TABLET PO SCH (09:46)
[2021-07-15] MEDS: TACROLIMUS 0.5 MG CAPSULE PO SCH ×2 (09:46→21:12)
[2021-07-15] MEDS: AZITHROMYCIN 250 MG TABLET PO SCH (09:46)
[2021-07-15] MEDS: buPROPion XL 150 MG TABLET PO SCH (09:47)
[2021-07-15] MEDS: guaiFENesin/DM ER 600-30 MG TABLET PO SCH (09:47)
[2021-07-15] MEDS: ASCORBIC ACID 500 MG TABLET PO SCH ×2 (09:47→21:12)
[2021-07-15] MEDS: LEFLUNOMIDE 10 MG TABLET PO SCH (09:47)
[2021-07-15] MEDS: ZINC GLUCONATE 50 MG TABLET PO SCH (09:47)
[2021-07-15] MEDS: DEXAMETHASONE 10 MG/1 ML VIAL IV SCH (09:51)
[2021-07-15] MEDS: ENOXAPARIN 120 MG/0.8 ML SYRINGE SUBCUT SCH ×2 (09:51→21:11)
[2021-07-15] MEDS: BACILLUS COAGULANS CAPLET PO SCH (12:11)
[2021-07-15] MEDS: WARFARIN 5 MG TABLET PO SCH (18:22)
[2021-07-15] MEDS: ZALEPLON 5 MG CAPSULE PO PRN (21:10)
[2021-07-15] MEDS: guaiFENesin/DM ER 600-30 MG TABLET PO PRN (21:12)
[2021-07-16] MEDS: LEVOTHYROXINE 150 MCG TABLET PO SCH (05:40)
[2021-07-16] MEDS ORDERED: MAGNESIUM OXIDE 400 MG TABLET PO SCH (09:00)
[2021-07-16] MEDS: CHOLECALCIFEROL 1,000 UNIT TABLET PO SCH (10:05)
[2021-07-16] MEDS: BACILLUS COAGULANS CAPLET PO SCH (10:06)
[2021-07-16] MEDS: ZINC GLUCONATE 50 MG TABLET PO SCH (10:06)
[2021-07-16] MEDS: LEFLUNOMIDE 10 MG TABLET PO SCH (10:06)
[2021-07-16] MEDS: ASCORBIC ACID 500 MG TABLET PO SCH (10:07)
[2021-07-16] MEDS: buPROPion XL 150 MG TABLET PO SCH (10:07)
[2021-07-16] MEDS: AZITHROMYCIN 250 MG TABLET PO SCH (10:07)
[2021-07-16] MEDS: DEXAMETHASONE 10 MG/1 ML VIAL IV SCH (10:08)
[2021-07-16] MEDS: guaiFENesin/DM ER 600-30 MG TABLET PO SCH (12:00)
[2021-07-16] MEDS: BENZONATATE 100 MG CAPSULE PO SCH (12:01)
[2021-07-16] MEDS: TACROLIMUS 0.5 MG CAPSULE PO SCH (12:01)
[2021-07-16] MEDS: PANTOPRAZOLE 40 MG TABLET PO SCH (12:02)
[2021-07-16] MEDS: ENOXAPARIN 120 MG/0.8 ML SYRINGE SUBCUT SCH (12:04)
[2021-07-16 12:42] LABS: PT Patient Result 21.4 SECS (10.5-12.0)
[2021-07-16 14:05] VITALS: BP 138/59
== END 2021-07-16 15:30 | disposition home or self-care (01) | DRG 175 ==
LOC: N.ED 09:51 → SUATTDRO 14:07 → N.EDINP 14:07 → N.3E 16:16
PROVIDERS: ADMIT Internal Medicine; ATTEND Hospitalist

== ENCOUNTER 2021-07-23 16:19 | Inpatient (IN) ==
[2021-07-23 17:26] LABS: Arterial Base Excess iSTAT 1 MMOL/L (-2.5-2.5); Arterial Bicarbonate iSTAT 21.9 MMOL/L (20-26); Arterial O2 Saturation iSTAT 99 % (95-100); Arterial PCO2 iSTAT 24 MM HG (35-48); Arterial PO2 iSTAT 110 MM HG (80-95); Arterial Total CO2 iSTAT 23 MMO/L (23-27); Arterial pH iSTAT 7.567 (7.35-7.45)
[2021-07-23 17:44] LABS: Basophils % 0.1 % (0.0-0.8); Eosinophils # 0.1 10*3/uL (0.0-0.87); Eosinophils % 1.1 % (0.00-10.9); Hematocrit 34.8 VOL% (35.7-47.0); Hemoglobin 11.3 GM/DL (12.0-16.0); Immature Granulocytes % 0.8 %; Immature Granulocytes Absolute 0.08 #; Lymphocytes # 0.9 10*3/uL (1.4-4.0); Lymphocytes % 8.6 % (21.3-54.2); Mean Corpuscular HGB Conc 32.5 GM/DL (32-36); Mean Corpuscular Volume 92.3 FL (87-102); Monocytes # 0.6 10*3/uL (0.11-0.8); Monocytes % 5.8 % (1.7-12.7); Neutrophils % 83.6 % (38.7-73.9); Platelet Count 336 T/CUMM (130-400); Red Blood Count 3.77 MC/CUMM (3.8-5.5); Red Cell Distribution Width 17.9 % (9.3-17.3); White Blood Count 9.9 T/CUMM (4-12)
[2021-07-23 17:54] LABS: PT Patient Result 30.9 SECS (10.5-12.0)
[2021-07-23 17:57] LABS: Albumin 2.9 G/DL (3.4-5.0); Bilirubin,Total 0.4 MG/DL (0.20-1.00); Osmolality,Calculated 287.5 MOS/KG (273-304); Potassium 4.2 MMOL/L (3.5-5.1); Total Protein 6.8 G/DL (6.4-8.2)
[2021-07-23] MEDS ORDERED: FUROSEMIDE 40 MG/4 ML VIAL IV STA (20:41)
[2021-07-23] MEDS ORDERED: GLUCAGON 1 MG VIAL IM PRN (20:42)
[2021-07-23] MEDS ORDERED: hydrALAZINE 20 MG/1 ML VIAL IV PRN (20:42)
[2021-07-23] MEDS ORDERED: diphenhydrAMINE CAP 25 MG CAPSULE PO PRN (20:42)
[2021-07-23] MEDS ORDERED: NICOTINE 21 MG/24 HR PATCH TRANSDERM PRN (20:42)
[2021-07-23] MEDS ORDERED: ONDANSETRON 4 MG/2 ML VIAL IV PRN (20:42)
[2021-07-23] MEDS ORDERED: guaiFENesin/DM ER 600-30 MG TABLET PO PRN (20:42)
[2021-07-23] MEDS ORDERED: DEXTROSE 10% 250 ML BAG IV PRN (20:52)
[2021-07-23] MEDS: TACROLIMUS 0.5 MG CAPSULE PO SCH (22:20)
[2021-07-24] MEDS: ALBUTEROL/IPRATROPIUM 3 ML NEB RESP TX SCH ×6 (01:20→19:34)
[2021-07-24 04:07] LABS: Basophils % 0.3 % (0.0-0.8); Eosinophils # 0.2 10*3/uL (0.0-0.87); Eosinophils % 1.9 % (0.00-10.9); Hematocrit 39.1 VOL% (35.7-47.0); Hemoglobin 12.5 GM/DL (12.0-16.0); Immature Granulocytes % 0.8 %; Immature Granulocytes Absolute 0.07 #; Lymphocytes # 1.3 10*3/uL (1.4-4.0); Lymphocytes % 14.7 % (21.3-54.2); Mean Corpuscular Volume 91.4 FL (87-102); Mean Platelet Volume 10.1 FL (9.6-12.0); Monocytes # 0.7 10*3/uL (0.11-0.8); Monocytes % 7.4 % (1.7-12.7); Neutrophils % 74.9 % (38.7-73.9); Platelet Count 341 T/CUMM (130-400); Red Blood Count 4.28 MC/CUMM (3.8-5.5); White Blood Count 8.8 T/CUMM (4-12)
[2021-07-24 04:17] LABS: INR 2.5; PT Patient Result 25.7 SECS (10.5-12.0); Partial Thromboplastin Time 43.7 SECS (23.8-32.1)
[2021-07-24 04:29] LABS: Osmolality,Calculated 284.5 MOS/KG (273-304)
[2021-07-24] MEDS: LEVOTHYROXINE 75 MCG TABLET PO SCH (06:27)
[2021-07-24] MEDS: PANTOPRAZOLE 40 MG TABLET PO SCH (06:27)
[2021-07-24] MEDS ORDERED: FUROSEMIDE 40 MG/4 ML VIAL IV SCH (08:00)
[2021-07-24] MEDS ORDERED: MAGNESIUM SULF RIDER 2 GM/50 ML PREMIX IV ONE (08:22)
[2021-07-24] MEDS ORDERED: MAGNESIUM SULF RIDER 2 GM/50 ML PREMIX IV PRN (10:00)
[2021-07-24] MEDS ORDERED: POTASSIUM CHLORIDE RIDER 10 MEQ/100 ML PREMIX IV PRN (10:00)
[2021-07-24] MEDS: SODIUM CHLORIDE 0.45% 1,000 ML IV SCH (12:23)
[2021-07-24] MEDS ORDERED: WARFARIN 5 MG TABLET PO SCH (18:00)
[2021-07-24] MEDS: MAGNESIUM OXIDE 400 MG TABLET PO SCH (21:14)
[2021-07-24] MEDS: TACROLIMUS 0.5 MG CAPSULE PO SCH (21:15)
[2021-07-24] MEDS: ZALEPLON 5 MG CAPSULE PO PRN (21:15)
[2021-07-25] MEDS: ALBUTEROL/IPRATROPIUM 3 ML NEB RESP TX SCH ×4 (01:52→19:18)
[2021-07-25] MEDS: PANTOPRAZOLE 40 MG TABLET PO SCH (06:03)
[2021-07-25] MEDS: LEVOTHYROXINE 75 MCG TABLET PO SCH (06:03)
[2021-07-25 06:33] LABS: Basophils % 0.3 % (0.0-0.8); Eosinophils # 0.2 10*3/uL (0.0-0.87); Hematocrit 37.9 VOL% (35.7-47.0); Hemoglobin 12.1 GM/DL (12.0-16.0); Immature Granulocytes % 0.7 %; Immature Granulocytes Absolute 0.05 #; Lymphocytes # 0.8 10*3/uL (1.4-4.0); Lymphocytes % 11.5 % (21.3-54.2); Mean Corpuscular HGB Conc 31.9 GM/DL (32-36); Mean Corpuscular Volume 93.1 FL (87-102); Mean Platelet Volume 9.8 FL (9.6-12.0); Monocytes # 0.6 10*3/uL (0.11-0.8); Monocytes % 8.6 % (1.7-12.7); Neutrophils % 75.9 % (38.7-73.9); Platelet Count 272 T/CUMM (130-400); Red Blood Count 4.07 MC/CUMM (3.8-5.5); Red Cell Distribution Width 18.3 % (9.3-17.3); White Blood Count 6.9 T/CUMM (4-12)
[2021-07-25 06:42] LABS: INR 1.8; PT Patient Result 19.3 SECS (10.5-12.0)
[2021-07-25 07:00] LABS: Calcium 9.7 MG/DL (8.5-10.1); Potassium 3.3 MMOL/L (3.5-5.1)
[2021-07-25 07:03] LABS: Albumin 2.9 G/DL (3.4-5.0); Bilirubin,Total 0.4 MG/DL (0.20-1.00); Calcium 9.3 MG/DL (8.5-10.1); Osmolality,Calculated 287.5 MOS/KG (273-304); Potassium 3.6 MMOL/L (3.5-5.1); Total Protein 6.9 G/DL (6.4-8.2)
[2021-07-25] MEDS ORDERED: TACROLIMUS 0.5 MG CAPSULE PO SCH (09:00)
[2021-07-25] MEDS: SODIUM CHLORIDE 0.45% 1,000 ML IV SCH ×2 (09:20→16:23)
[2021-07-25] MEDS: LEFLUNOMIDE 10 MG TABLET PO SCH (09:21)
[2021-07-25] MEDS: predniSONE 5 MG TABLET PO SCH (09:21)
[2021-07-25] MEDS: MAGNESIUM OXIDE 400 MG TABLET PO SCH ×2 (09:21→20:59)
[2021-07-25] MEDS: TACROLIMUS 0.5 MG CAPSULE PO SCH ×2 (09:21→20:59)
[2021-07-25] MEDS ORDERED: LEFLUNOMIDE 10 MG TABLET PO ONE (10:00)
[2021-07-25 13:34] LABS: Glucose,Urine (UA) Negative (Negative); Ketones,Urine Negative (Negative); Nitrite,Urine Negative (Negative); Protein,Urine 30 mg/dL (Negative); Urine Appearance Clear (Clear); Urine Color Yellow (Yellow); Urine pH 5.5 (4.5-8.0)
[2021-07-25 13:35] LABS: Bilirubin,Urine Negative (Negative); Blood, Urine Negative (Negative); Urine Urobilinogen 0.2 eU/dL (<2.0)
[2021-07-25 13:36] LABS: Bacteria,Urine Occasional /HPF (Few); Hyaline Casts,Urine 6 /LPF (0-3); Mucus,Urine Few /LPF (Occasional); Squamous Epithelial Cell,Urine Few /HPF (0-10)
[2021-07-25] MEDS ORDERED: HEPARIN/NACL 0.9% 2 UNITS/ML 1,000 UNIT/500 ML BAG IV ONE (14:15)
[2021-07-25] MEDS ORDERED: DIAZEPAM 5 MG TABLET PO ONE (15:00)
[2021-07-25] MEDS ORDERED: diphenhydrAMINE CAP 50 MG CAPSULE PO ONE (15:00)
[2021-07-25] MEDS ORDERED: fentaNYL 100 MCG/2 ML VIAL ONE (15:08)
[2021-07-25] MEDS ORDERED: MIDAZOLAM 2 MG/2 ML VIAL ONE (15:08)
[2021-07-25] MEDS ORDERED: LIDOCAINE 1%/EPI INJ 20 ML VIAL ONE (15:10)
[2021-07-25] MEDS ORDERED: HYDROmorphone 1 MG/1 ML SYRINGE ONE (16:05)
[2021-07-25] MEDS ORDERED: HEPARIN 5,000 UNIT/1 ML VIAL ONE (16:13)
[2021-07-25] MEDS: HEPARIN DRIP 25,000 UNITS/500 ML PREMIX IV SCH (16:18)
[2021-07-25] MEDS ORDERED: HEPARIN DRIP 25,000 UNITS/500 ML PREMIX IV ONE (16:23)
[2021-07-25] MEDS ORDERED: SODIUM CHLORIDE 0.45% 1,000 ML IV SCH (16:30)
[2021-07-25] MEDS: SODIUM CHLORIDE 0.9% 1,000 ML IV SCH (16:54)
[2021-07-25] MEDS: ZALEPLON 5 MG CAPSULE PO PRN (20:59)
[2021-07-26] MEDS: ALBUTEROL/IPRATROPIUM 3 ML NEB RESP TX SCH ×4 (00:24→19:57)
[2021-07-26] MEDS: SODIUM CHLORIDE 0.9% 1,000 ML IV SCH ×2 (03:28→18:15)
[2021-07-26 04:37] LABS: Basophils % 0.3 % (0.0-0.8); Eosinophils # 0.2 10*3/uL (0.0-0.87); Eosinophils % 2.3 % (0.00-10.9); Hematocrit 34.5 VOL% (35.7-47.0); Hemoglobin 10.8 GM/DL (12.0-16.0); Immature Granulocytes % 0.6 %; Immature Granulocytes Absolute 0.05 #; Lymphocytes # 0.9 10*3/uL (1.4-4.0); Lymphocytes % 10.9 % (21.3-54.2); Mean Corpuscular HGB Conc 31.3 GM/DL (32-36); Mean Corpuscular Volume 94.8 FL (87-102); Monocytes # 0.7 10*3/uL (0.11-0.8); Monocytes % 8.2 % (1.7-12.7); Neutrophils % 77.7 % (38.7-73.9); Platelet Count 268 T/CUMM (130-400); Red Blood Count 3.64 MC/CUMM (3.8-5.5); Red Cell Distribution Width 18.3 % (9.3-17.3)
[2021-07-26 04:50] LABS: INR 1.4; PT Patient Result 15.6 SECS (10.5-12.0)
[2021-07-26 04:59] LABS: Alanine Aminotransferase 33 U/L (13-56); Albumin 2.4 G/DL (3.4-5.0); Alkaline Phosphatase 71 U/L (45-117); Aspartate Amino Transferase 24 U/L (0-37); Bilirubin,Total < 0.39 MG/DL (0.20-1.00); Blood Urea Nitrogen 39 MG/DL (7-18); Calcium 9.3 MG/DL (8.5-10.1); Carbon Dioxide 26 MMOL/L (21-32); Chloride 106 MMOL/L (98-107); Glucose 109 MG/DL (74-106); Osmolality,Calculated 284.7 MOS/KG (273-304); Potassium 3.9 MMOL/L (3.5-5.1); Sodium 138 MMOL/L (136-145); Total Protein 6.5 G/DL (6.4-8.2)
[2021-07-26 05:21] LABS: Potassium 3.9 MMOL/L (3.5-5.1)
[2021-07-26 05:23] LABS: Calcium 9.4 MG/DL (8.5-10.1)
[2021-07-26 05:31] LABS: Osmolality,Calculated 285.5 MOS/KG (273-304)
[2021-07-26] MEDS: LEVOTHYROXINE 75 MCG TABLET PO SCH (05:33)
[2021-07-26] MEDS: PANTOPRAZOLE 40 MG TABLET PO SCH (05:34)
[2021-07-26] MEDS: HEPARIN DRIP 25,000 UNITS/500 ML PREMIX IV SCH ×3 (07:53→21:31)
[2021-07-26] MEDS: ACETAMINOPHEN 325 MG TABLET PO PRN ×2 (07:56→09:52)
[2021-07-26] MEDS: LEFLUNOMIDE 10 MG TABLET PO SCH (09:46)
[2021-07-26] MEDS: predniSONE 5 MG TABLET PO SCH (09:47)
[2021-07-26] MEDS: MAGNESIUM OXIDE 400 MG TABLET PO SCH ×2 (09:47→21:26)
[2021-07-26] MEDS: TACROLIMUS 0.5 MG CAPSULE PO SCH ×2 (09:48→21:26)
[2021-07-26] MEDS ORDERED: BENZONATATE 100 MG CAPSULE PO PRN (11:19)
[2021-07-26] MEDS: guaiFENesin/DM ER 600-30 MG TABLET PO SCH ×2 (15:44→21:27)
[2021-07-26] MEDS: SODIUM BICARBONATE 650 MG TABLET PO SCH (21:26)
[2021-07-26] MEDS: ZALEPLON 5 MG CAPSULE PO PRN (21:26)
[2021-07-27] MEDS: SODIUM CHLORIDE 0.9% 1,000 ML IV SCH ×3 (00:20→23:49)
[2021-07-27] MEDS: PANTOPRAZOLE 40 MG TABLET PO SCH (05:31)
[2021-07-27] MEDS: LEVOTHYROXINE 75 MCG TABLET PO SCH (05:31)
[2021-07-27 05:55] LABS: INR 1.2; PT Patient Result 13.4 SECS (10.5-12.0)
[2021-07-27 06:05] LABS: Albumin 2.5 G/DL (3.4-5.0); Bilirubin,Total 0.4 MG/DL (0.20-1.00); Calcium 9.9 MG/DL (8.5-10.1); Osmolality,Calculated 276.1 MOS/KG (273-304); Potassium 4.7 MMOL/L (3.5-5.1); Total Protein 6.5 G/DL (6.4-8.2)
[2021-07-27] MEDS ORDERED: HYDROmorphone 1 MG/1 ML SYRINGE IV ONE (06:15)
[2021-07-27 06:22] LABS: Calcium 9.4 MG/DL (8.5-10.1); Osmolality,Calculated 277.1 MOS/KG (273-304)
[2021-07-27 06:34] LABS: Basophils % 0.3 % (0.0-0.8); Eosinophils # 0.3 10*3/uL (0.0-0.87); Eosinophils % 3.3 % (0.00-10.9); Hematocrit 32.2 VOL% (35.7-47.0); Hemoglobin 10.1 GM/DL (12.0-16.0); Immature Granulocytes % 0.9 %; Immature Granulocytes Absolute 0.07 #; Lymphocytes % 12.6 % (21.3-54.2); Mean Corpuscular HGB Conc 31.4 GM/DL (32-36); Mean Corpuscular Volume 94.2 FL (87-102); Mean Platelet Volume 10.6 FL (9.6-12.0); Monocytes # 0.7 10*3/uL (0.11-0.8); Monocytes % 9.4 % (1.7-12.7); Neutrophils % 73.5 % (38.7-73.9); Platelet Count 245 T/CUMM (130-400); Red Blood Count 3.42 MC/CUMM (3.8-5.5); Red Cell Distribution Width 18.2 % (9.3-17.3); White Blood Count 7.5 T/CUMM (4-12)
[2021-07-27] MEDS: ALBUTEROL/IPRATROPIUM 3 ML NEB RESP TX SCH ×4 (07:17→21:35)
[2021-07-27] MEDS ORDERED: MAGNESIUM SULF RIDER 2 GM/50 ML PREMIX IV ONE (07:46)
[2021-07-27] MEDS: TACROLIMUS 0.5 MG CAPSULE PO SCH ×2 (08:09→21:22)
[2021-07-27] MEDS: guaiFENesin/DM ER 600-30 MG TABLET PO SCH ×2 (08:10→21:24)
[2021-07-27] MEDS: predniSONE 5 MG TABLET PO SCH (08:10)
[2021-07-27] MEDS: LEFLUNOMIDE 10 MG TABLET PO SCH (08:10)
[2021-07-27] MEDS: SODIUM BICARBONATE 650 MG TABLET PO SCH ×2 (08:10→21:21)
[2021-07-27] MEDS: MAGNESIUM OXIDE 400 MG TABLET PO SCH ×2 (08:10→21:24)
[2021-07-27] MEDS: APIXABAN 5 MG TABLET PO SCH ×2 (10:25→21:23)
[2021-07-27] MEDS: ZALEPLON 5 MG CAPSULE PO PRN (21:20)
[2021-07-28] MEDS: ALBUTEROL/IPRATROPIUM 3 ML NEB RESP TX SCH ×4 (00:46→20:31)
[2021-07-28 05:34] LABS: Basophils % 0.5 % (0.0-0.8); Eosinophils # 0.2 10*3/uL (0.0-0.87); Eosinophils % 2.7 % (0.00-10.9); Hematocrit 28.8 VOL% (35.7-47.0); Hemoglobin 9.1 GM/DL (12.0-16.0); Immature Granulocytes % 0.7 %; Immature Granulocytes Absolute 0.04 #; Lymphocytes # 0.9 10*3/uL (1.4-4.0); Lymphocytes % 15.1 % (21.3-54.2); Mean Corpuscular HGB Conc 31.6 GM/DL (32-36); Mean Corpuscular Volume 95.4 FL (87-102); Mean Platelet Volume 11.7 FL (9.6-12.0); Monocytes # 0.6 10*3/uL (0.11-0.8); Monocytes % 10.1 % (1.7-12.7); Neutrophils % 70.9 % (38.7-73.9); Platelet Count 253 T/CUMM (130-400); Red Blood Count 3.02 MC/CUMM (3.8-5.5); Red Cell Distribution Width 18.6 % (9.3-17.3)
[2021-07-28] MEDS: SODIUM CHLORIDE 0.9% 1,000 ML IV SCH (05:44)
[2021-07-28] MEDS: LEVOTHYROXINE 75 MCG TABLET PO SCH (06:20)
[2021-07-28] MEDS: PANTOPRAZOLE 40 MG TABLET PO SCH (06:21)
[2021-07-28 07:40] LABS: Alanine Aminotransferase 26 U/L (13-56); Albumin 2.5 G/DL (3.4-5.0); Alkaline Phosphatase 64 U/L (45-117); Aspartate Amino Transferase 27 U/L (0-37); Bilirubin,Total < 0.39 MG/DL (0.20-1.00); Blood Urea Nitrogen 29 MG/DL (7-18); Calcium 9.4 MG/DL (8.5-10.1); Carbon Dioxide 28 MMOL/L (21-32); Chloride 104 MMOL/L (98-107); Glucose 113 MG/DL (74-106); Osmolality,Calculated 276.1 MOS/KG (273-304); Potassium 4.9 MMOL/L (3.5-5.1); Sodium 135 MMOL/L (136-145); Total Protein 6.5 G/DL (6.4-8.2)
[2021-07-28] MEDS: LEFLUNOMIDE 10 MG TABLET PO SCH (08:52)
[2021-07-28] MEDS: TACROLIMUS 0.5 MG CAPSULE PO SCH ×2 (08:53→22:03)
[2021-07-28] MEDS: MAGNESIUM OXIDE 400 MG TABLET PO SCH ×2 (08:53→21:58)
[2021-07-28] MEDS: guaiFENesin/DM ER 600-30 MG TABLET PO SCH ×2 (08:53→22:02)
[2021-07-28] MEDS: predniSONE 5 MG TABLET PO SCH (08:53)
[2021-07-28] MEDS: SODIUM BICARBONATE 650 MG TABLET PO SCH ×2 (08:53→21:58)
[2021-07-28] MEDS: ZALEPLON 5 MG CAPSULE PO PRN (21:58)
[2021-07-29] MEDS: ALBUTEROL/IPRATROPIUM 3 ML NEB RESP TX SCH ×4 (00:48→19:40)
[2021-07-29 05:54] LABS: Basophils % 0.3 % (0.0-0.8); Eosinophils # 0.2 10*3/uL (0.0-0.87); Eosinophils % 3.1 % (0.00-10.9); Hematocrit 27.4 VOL% (35.7-47.0); Hemoglobin 8.6 GM/DL (12.0-16.0); Immature Granulocytes % 0.8 %; Immature Granulocytes Absolute 0.05 #; Lymphocytes # 0.7 10*3/uL (1.4-4.0); Mean Corpuscular HGB Conc 31.4 GM/DL (32-36); Mean Corpuscular Volume 96.5 FL (87-102); Mean Platelet Volume 10.1 FL (9.6-12.0); Monocytes # 0.6 10*3/uL (0.11-0.8); Monocytes % 9.9 % (1.7-12.7); Neutrophils % 73.9 % (38.7-73.9); Platelet Count 220 T/CUMM (130-400); Red Blood Count 2.84 MC/CUMM (3.8-5.5); Red Cell Distribution Width 18.6 % (9.3-17.3); White Blood Count 6.2 T/CUMM (4-12)
[2021-07-29 06:11] LABS: Alanine Aminotransferase 26 U/L (13-56); Albumin 2.5 G/DL (3.4-5.0); Alkaline Phosphatase 70 U/L (45-117); Aspartate Amino Transferase 27 U/L (0-37); Bilirubin,Total < 0.39 MG/DL (0.20-1.00); Blood Urea Nitrogen 32 MG/DL (7-18); Calcium 9.6 MG/DL (8.5-10.1); Carbon Dioxide 29 MMOL/L (21-32); Chloride 102 MMOL/L (98-107); Glucose 114 MG/DL (74-106); Osmolality,Calculated 277.1 MOS/KG (273-304); Potassium 4.4 MMOL/L (3.5-5.1); Sodium 135 MMOL/L (136-145); Total Protein 6.3 G/DL (6.4-8.2)
[2021-07-29] MEDS: LEVOTHYROXINE 75 MCG TABLET PO SCH (06:50)
[2021-07-29] MEDS: PANTOPRAZOLE 40 MG TABLET PO SCH (06:50)
[2021-07-29] MEDS: guaiFENesin/DM ER 600-30 MG TABLET PO SCH ×2 (09:35→20:29)
[2021-07-29] MEDS: LEFLUNOMIDE 10 MG TABLET PO SCH (09:36)
[2021-07-29] MEDS: TACROLIMUS 0.5 MG CAPSULE PO SCH ×2 (09:37→20:29)
[2021-07-29] MEDS: predniSONE 5 MG TABLET PO SCH (09:37)
[2021-07-29] MEDS: MAGNESIUM OXIDE 400 MG TABLET PO SCH ×2 (09:37→20:30)
[2021-07-29] MEDS: SODIUM BICARBONATE 650 MG TABLET PO SCH ×2 (09:37→20:29)
[2021-07-29] MEDS: ZALEPLON 5 MG CAPSULE PO PRN (20:30)
[2021-07-29] MEDS: APIXABAN 5 MG TABLET PO SCH (21:09)
[2021-07-30] MEDS: ALBUTEROL/IPRATROPIUM 3 ML NEB RESP TX SCH ×3 (00:45→15:25)
[2021-07-30] MEDS: PANTOPRAZOLE 40 MG TABLET PO SCH (05:37)
[2021-07-30] MEDS: LEVOTHYROXINE 75 MCG TABLET PO SCH (05:37)
[2021-07-30 06:14] LABS: Basophils % 0.4 % (0.0-0.8); Eosinophils # 0.2 10*3/uL (0.0-0.87); Eosinophils % 3.1 % (0.00-10.9); Hematocrit 26.5 VOL% (35.7-47.0); Hemoglobin 8.4 GM/DL (12.0-16.0); Immature Granulocytes % 0.7 %; Immature Granulocytes Absolute 0.04 #; Lymphocytes # 0.7 10*3/uL (1.4-4.0); Lymphocytes % 12.9 % (21.3-54.2); Mean Corpuscular HGB Conc 31.7 GM/DL (32-36); Mean Corpuscular Volume 95.3 FL (87-102); Mean Platelet Volume 10.8 FL (9.6-12.0); Monocytes # 0.6 10*3/uL (0.11-0.8); Monocytes % 11.4 % (1.7-12.7); Neutrophils % 71.5 % (38.7-73.9); Platelet Count 191 T/CUMM (130-400); Red Blood Count 2.78 MC/CUMM (3.8-5.5); Red Cell Distribution Width 18.3 % (9.3-17.3); White Blood Count 5.5 T/CUMM (4-12)
[2021-07-30 07:05] LABS: Albumin 2.5 G/DL (3.4-5.0); Bilirubin,Total 0.4 MG/DL (0.20-1.00); Calcium 9.5 MG/DL (8.5-10.1); Osmolality,Calculated 276.8 MOS/KG (273-304); Potassium 4.7 MMOL/L (3.5-5.1); Total Protein 6.3 G/DL (6.4-8.2)
[2021-07-30] MEDS: SODIUM BICARBONATE 650 MG TABLET PO SCH (09:57)
[2021-07-30] MEDS: LEFLUNOMIDE 10 MG TABLET PO SCH (09:57)
[2021-07-30] MEDS: TACROLIMUS 0.5 MG CAPSULE PO SCH (09:58)
[2021-07-30] MEDS: APIXABAN 5 MG TABLET PO SCH (09:58)
[2021-07-30] MEDS: guaiFENesin/DM ER 600-30 MG TABLET PO SCH (09:58)
[2021-07-30] MEDS: MAGNESIUM OXIDE 400 MG TABLET PO SCH (09:59)
[2021-07-30] MEDS: predniSONE 5 MG TABLET PO SCH (09:59)
[2021-07-30 11:21] LABS: DRVVT Screen Ratio 2.06 ratio (<1.20); INR 1.5 (0.9-1.1)
[2021-07-30 14:16] LABS: Phospholipid Ab IgM, S < 9.4 MPL
[2021-07-30 16:28] VITALS: BP 136/79
[2021-07-31 08:01] LABS: PTNT Reviewed By SEE COMMENTS
[2021-07-31] MEDS ORDERED: FERROUS SULFATE 325 MG TABLET PO SCH (09:00)
[2021-08-01 08:07] LABS: F5DNA Reviewed By SEE COMMENTS; Factor V Leiden (R506Q) Mutati Negative (Negative)
[2021-08-04] MEDS ORDERED: APIXABAN 5 MG TABLET PO SCH (09:00)
[2021-08-04 12:29] LABS: PT Mix 1:1 (Mayo Reflex) 11.6 sec (9.4 - 12.5); Reptilase Time, P 27.1 sec; Thrombin Time (Bovine), P > 300.0 sec
== END 2021-07-30 18:24 | disposition home health service (06) | DRG 175 ==
LOC: EDBD → EDUNIT# → N.ED 16:19 → SUATTDRO 20:42 → N.EDINP 20:42 → N.TELES 07-24 13:26
PROVIDERS: ADMIT Family Medicine; ATTEND Internal Medicine